=== PATIENT | male | born 2005 | race Two or more races ===

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

== ENCOUNTER 2024-02-06 19:16 | Emergency (ER) | payer SELFPAY ==
[~2024-02-06] VITALS: Ht 177.8 cm; Wt 84.1 kg
[2024-02-06 19:19] VITALS: BP 133/74; PULSE 100; RESP 16; TEMP 98.2; O2SAT 100
[2024-02-06] MEDS ORDERED: DOXY-354 PO (21:10)
[2024-02-06] MEDS: DOXYCYCLINE HYCLATE 100 MG TABLET PO ONE (21:22)
[2024-02-06] MEDS: PERTUSS(ACELL),DIPH,TET/PF 0.5 ML SYRINGE [ADULT] IM. ONE (21:23)
== END 2024-02-06 22:59 | disposition home or self-care (01) ==
LOC: EMS 19:16
DX: S91.352A Open bite, left foot, initial encounter (principal); S91.351A Open bite, right foot, initial encounter; S61.451A Open bite of right hand, initial encounter; Z88.0 Allergy status to penicillin; W54.0XXA Bitten by dog, initial encounter; Y93.89 Activity, other specified; Y92.89 Other specified places as the place of occurrence of the external cause; Y99.8 Other external cause status
CPT/HCPCS: 90471; 90715; 99283

== ENCOUNTER 2024-10-21 16:12 | Emergency (ER) | payer SELFPAY ==
[~2024-10-21] VITALS: Ht 175.3 cm; Wt 100.0 kg
[~2024-10-21 16:12] MED LIST: DOXY-354 PO
[2024-10-21 17:03] LABS: COVID AG,FIA SOURCE NASAL SWAB
[2024-10-21 17:22] LABS: SARS-COV2 (COVID) ANTIGEN,FIA Negative (Negative)
[2024-10-21 17:27] LABS: INFLUENZA TYPE A NEGATIVE FOR TYPE A (NEGATIVE); INFLUENZA TYPE B NEGATIVE FOR TYPE B (NEGATIVE)
[2024-10-21] MEDS ORDERED: ALBU18HF12 IH (18:08)
[2024-10-21] MEDS ORDERED: BENZ-227 PO (18:08)
[2024-10-21 18:09] VITALS: BP 114/74; PULSE 78; RESP 18; TEMP 97.9; O2SAT 100
== END 2024-10-21 18:22 | disposition home or self-care (01) ==
LOC: EMS 16:12
DX: J40 Bronchitis, not specified as acute or chronic (principal); Z20.822 Contact with and (suspected) exposure to COVID-19; Z88.0 Allergy status to penicillin; Z79.899 Other long term (current) drug therapy; Z72.89 Other problems related to lifestyle
CPT/HCPCS: 87804; 99283

== ENCOUNTER 2024-12-22 07:45 | Emergency (ER) | payer MEDICAID ==
[~2024-12-22] VITALS: Ht 167.6 cm; Wt 105.5 kg
[~2024-12-22 07:45] MED LIST changes: +ALBU18HF12 IH; +BENZ-227 PO
[2024-12-22 07:56] VITALS: TEMP 98.4
[2024-12-22] MEDS ORDERED: ACET-66 PO (09:02)
[2024-12-22] MEDS ORDERED: SULF15DR26 OU (09:02)
[2024-12-22] MEDS ORDERED: IBUP-1554 PO (09:24)
[2024-12-22 09:27] VITALS: BP 122/71; PULSE 113; RESP 18; O2SAT 98
== END 2024-12-22 09:31 | disposition home or self-care (01) ==
LOC: EMS 07:46
DX: B30.9 Viral conjunctivitis, unspecified (principal); R00.2 Palpitations; Z88.0 Allergy status to penicillin; Z79.899 Other long term (current) drug therapy; W22.09XA Striking against other stationary object, initial encounter
CPT/HCPCS: 93005; 99283

== ENCOUNTER 2024-12-24 13:34 | Inpatient (IN) | payer MEDICAID ==
[~2024-12-24] VITALS: Ht 167.6 cm; Wt 113.5 kg
[~2024-12-24 13:34] MED LIST changes: +IBUP-1554 PO; +SULF15DR26 OU
[2024-12-24 15:01] LABS: PLATELET COUNT (AUTO) 263 K/uL (150-450); RED BLOOD CELL COUNT(AUTO) 5.22 MIL/uL (4.50-5.90); RED CELL DISTRIBUTION WIDTH 12.5 % (11.5-14.5); WHITE BLOOD COUNT (AUTO) 12.3 K/uL (4.5-11.0)
[2024-12-24 15:19] LABS: CALCIUM, TOTAL 9.4 mg/dL (8.8-10.5); CREATININE 1.00 mg/dL (0.60-1.30); GLOMERULAR FILTR. RATE CALC > 60 mL/min (>60); GLUCOSE,RANDOM 126 mg/dL (70-110); SODIUM SERUM 134 mmol/L (136-145); UREA NITROGEN, BLOOD 11 mg/dL (7-18)
[2024-12-24 15:20] LABS: PLATELET MORPHOLOGY COMMENT LARGE PLTS PRESENT; RBC MORPHOLOGY COMMENT NORMAL RBC MORPH
[2024-12-24 15:24] LABS: LACTIC ACID 1.4 mmol/L (0.4-2.0)
[2024-12-24 15:33] LABS: ASPARTATE AMINOTRANSFERASE 51 U/L (15-37); CREATINE KINASE, TOTAL ONLY 1638 U/L (39-308); TOTAL PROTEIN, SERUM 8.2 g/dL (6.4-8.2)
[2024-12-24 16:06] LABS: APPEARANCE,URINE CLEAR (CLEAR); GLUCOSE, URINE (UA) NEGATIVE (NEGATIVE); LEUKOCYTE ESTERASE ,URINE NEGATIVE (NEGATIVE); NITRATE,URINE NEGATIVE (NEGATIVE); OCCULT BLOOD,URINE NEGATIVE (NEGATIVE); SPECIFIC GRAVITIY, URINE 1.009 (1.003-1.030)
[2024-12-24 16:10] LABS: COVID AG,FIA SOURCE NASAL SWAB
[2024-12-24 16:24] LABS: TROPONIN I-HIGH SENSITIVITY 7 ng/L (<76)
[2024-12-24] MEDS: SODIUM CHLORIDE 0.9% 2,000 ML IV ONE (16:24)
[2024-12-24 16:46] LABS: SARS-COV2 (COVID) ANTIGEN,FIA Negative (Negative)
[2024-12-24 16:47] LABS: INFLUENZA TYPE A NEGATIVE FOR TYPE A (NEGATIVE); INFLUENZA TYPE B NEGATIVE FOR TYPE B (NEGATIVE)
[2024-12-24 20:20] VITALS: BP 140/88; PULSE 114; RESP 19; TEMP 101.1; O2SAT 100
[2024-12-24] MEDS ORDERED: ZOLPIDEM TARTRATE 5 MG TABLET PO PRN (20:30)
[2024-12-24] MEDS ORDERED: MAGNESIUM HYDROXIDE SUSPENSION 30 ML UDCUP PO PRN (20:30)
[2024-12-24] MEDS ORDERED: ONDANSETRON HCL 4 MG/2 ML VIAL IVP PRN (20:30)
[2024-12-24] MEDS ORDERED: MORPHINE SULFATE 2 MG/ML SYRINGE IVP PRN (20:30)
[2024-12-24] MEDS ORDERED: BISACODYL 10 MG RECTAL RECTAL SUPPOSITORY PR PRN (20:30)
[2024-12-24] MEDS: DOCUSATE SODIUM 100 MG CAPSULE PO SCH (21:00)
[2024-12-24] MEDS: IBUPROFEN 400 MG TABLET PO PRN (21:08)
[2024-12-24] MEDS: SODIUM CHLORIDE 0.9% 1,000 ML IV SCH (21:12)
[2024-12-24 22:27] LABS: APPEARANCE,URINE CLEAR (CLEAR); GLUCOSE, URINE (UA) NEGATIVE (NEGATIVE); LEUKOCYTE ESTERASE ,URINE NEGATIVE (NEGATIVE); NITRATE,URINE NEGATIVE (NEGATIVE); OCCULT BLOOD,URINE NEGATIVE (NEGATIVE); PH,URINE DRUG SCREEN 7.5 (5.0-8.0); SPECIFIC GRAVITIY, URINE 1.010 (1.003-1.030)
[2024-12-24 22:39] LABS: SQUAMOUS EPITHELIAL CELL,UR Rare /LPF (None Seen)
[2024-12-24 22:42] LABS: ALCOHOL, URINE DRUG SCREEN NEGATIVE (NEGATIVE); AMPHET/METH SCREEN,URINE NEGATIVE (NEGATIVE); BARBITURATE SCREEN, URINE NEGATIVE (NEGATIVE); CANNABINOID SCREEN,URINE NEGATIVE (NEGATIVE); COCAINE SCREEN,URINE NEGATIVE (NEGATIVE); METHADONE SCREEN, URINE NEGATIVE (NEGATIVE)
[2024-12-24 23:57] VITALS: BP 108/64; PULSE 83; RESP 18; TEMP 98.6; O2SAT 96
[2024-12-25] VITALS (10 sets, daily range): BP systolic 115–131; BP diastolic 57–78; PULSE 83–99; RESP 17–18; TEMP 98.1–102.2; O2SAT 96–100
[2024-12-25] MEDS: HEPARIN SODIUM,PORCINE 5,000 UNITS/ML VIAL SQ SCH
[2024-12-25 06:46] LABS: PLATELET COUNT (AUTO) 215 K/uL (150-450); RED BLOOD CELL COUNT(AUTO) 4.50 MIL/uL (4.50-5.90); RED CELL DISTRIBUTION WIDTH 12.4 % (11.5-14.5); WHITE BLOOD COUNT (AUTO) 10.0 K/uL (4.5-11.0)
[2024-12-25 06:54] LABS: CALCIUM, TOTAL 8.0 mg/dL (8.8-10.5); CREATININE 0.89 mg/dL (0.60-1.30); GLOMERULAR FILTR. RATE CALC > 60 mL/min (>60); GLUCOSE,RANDOM 96 mg/dL (70-110); SODIUM SERUM 136 mmol/L (136-145); UREA NITROGEN, BLOOD 8 mg/dL (7-18)
[2024-12-25] MEDS: PANTOPRAZOLE SODIUM 40 MG DR TABLET PO SCH (09:41)
[2024-12-25] MEDS ORDERED: SODIUM CHLORIDE 0.9% 100 ML ONE (15:42)
[2024-12-25] MEDS ORDERED: IOHEXOL 350 MG/ML 100 ML VIAL ONE (15:42)
[2024-12-25] MEDS ORDERED: 0.9% SODIUM CHLORIDE 10 ML SYRINGE IVP ONE (15:42)
[2024-12-25] MEDS: ALBUTEROL SULFATE 2.5 MG/0.5 ML NEB SOLUTION NEB PRN (19:11)
[2024-12-25] MEDS: BENZOCAINE/MENTHOL/ZINC CL 20% 11.9 GM GEL TP PRN (22:55)
[2024-12-26 03:19] VITALS: BP 120/79; PULSE 77; RESP 18; TEMP 97.9; O2SAT 99
[2024-12-26 07:56] VITALS: BP 110/84; PULSE 83; RESP 20; TEMP 97.9; O2SAT 99
[2024-12-26 08:15] LABS: PLATELET COUNT (AUTO) 206 K/uL (150-450); RED BLOOD CELL COUNT(AUTO) 4.76 MIL/uL (4.50-5.90); RED CELL DISTRIBUTION WIDTH 12.2 % (11.5-14.5); WHITE BLOOD COUNT (AUTO) 9.3 K/uL (4.5-11.0)
[2024-12-26 08:23] LABS: CALCIUM, TOTAL 8.5 mg/dL (8.8-10.5); CREATININE 0.77 mg/dL (0.60-1.30); GLOMERULAR FILTR. RATE CALC > 60 mL/min (>60); GLUCOSE,RANDOM 104 mg/dL (70-110); SODIUM SERUM 140 mmol/L (136-145); UREA NITROGEN, BLOOD 12 mg/dL (7-18)
[2024-12-26 16:15] LABS: ASPARTATE AMINOTRANSFERASE 48.0 U/L (15-37); TOTAL PROTEIN, SERUM 6.8 g/dL (6.4-8.2)
[2024-12-26 16:23] VITALS: BP 119/80; PULSE 79; RESP 18; TEMP 99.5; O2SAT 99
[2024-12-26 19:48] VITALS: BP 112/60; PULSE 74; RESP 19; TEMP 98.2; O2SAT 100
[2024-12-26 21:37] LABS: INFLUENZA A-RTPCR,COMBO NEGATIVE (NEGATIVE); INFLUENZA B-RTPCR,COMBO NEGATIVE (NEGATIVE); RESPIRATORY SYNCYTIAL VRS-PCR NEGATIVE (NEGATIVE); SARS COVID19 RTPCR, COMBO NEGATIVE (NEGATIVE)
[2024-12-27 04:43] VITALS: BP 117/80; PULSE 69; RESP 19; TEMP 97.6; O2SAT 100
[2024-12-27 07:20] LABS: PLATELET COUNT (AUTO) 231 K/uL (150-450); RED BLOOD CELL COUNT(AUTO) 4.80 MIL/uL (4.50-5.90); RED CELL DISTRIBUTION WIDTH 12.5 % (11.5-14.5); WHITE BLOOD COUNT (AUTO) 6.7 K/uL (4.5-11.0)
[2024-12-27 07:25] LABS: CALCIUM, TOTAL 9.0 mg/dL (8.8-10.5); CREATININE 0.86 mg/dL (0.60-1.30); GLOMERULAR FILTR. RATE CALC > 60 mL/min (>60); GLUCOSE,RANDOM 90 mg/dL (70-110); SODIUM SERUM 138 mmol/L (136-145); UREA NITROGEN, BLOOD 12 mg/dL (7-18)
[2024-12-27 08:28] VITALS: BP 112/72; PULSE 69; RESP 18; TEMP 98.1; O2SAT 100
[2024-12-27 15:30] VITALS: BP 121/68; PULSE 77; RESP 20; TEMP 98.1; O2SAT 100
[2024-12-27 20:00] VITALS: BP 121/68; PULSE 68; RESP 19; TEMP 98.4; O2SAT 98
[2024-12-28 04:59] VITALS: BP 101/54; PULSE 65; RESP 20; TEMP 98.2; O2SAT 100
[2024-12-28 07:10] VITALS: BP 113/68; PULSE 61; RESP 20; TEMP 98.1; O2SAT 100
[2024-12-31 11:07] LABS: WEST NILE VIRUS IGG Negative (Negative); WEST NILE VIRUS IGM Negative (Negative)
== END 2024-12-28 13:35 | disposition home or self-care (01) | DRG 351 ==
LOC: EMS 13:40 → EDH 16:42 → 5S 20:14 → 6S 12-25 11:25 → 4E 12-26 06:40
PROVIDERS: ADMIT Internal Medicine; ATTEND Internal Medicine
DX: M62.82 Rhabdomyolysis (principal); B34.9 Viral infection, unspecified; R73.9 Hyperglycemia, unspecified; R50.9 Fever, unspecified; Z20.822 Contact with and (suspected) exposure to COVID-19; Z88.0 Allergy status to penicillin; Z88.6 Allergy status to analgesic agent
CPT/HCPCS: 71045; 71260; 72193; 74160; 80048; 80076; 80307; 81001; 81003; 82550; 83605; 83880; 84145; 84484; 85025; 86592; 86788; 86789; 87040; 87389; 87491; 87591; 87637; 87804; 93005; 94640; 99285; G0378; G0480; J1644; J7030; J7050; 36415-L1; 36415-TC; J7613

== ENCOUNTER 2025-02-02 08:00 | Emergency (ER) | payer SELFPAY ==
[~2025-02-02] VITALS: Ht 167.6 cm; Wt 108.0 kg
[~2025-02-02 08:00] MED LIST changes: -DOXY-354 PO; -IBUP-1554 PO
[2025-02-02 08:15] VITALS: BP 115/63; PULSE 70; RESP 18; TEMP 97.3; O2SAT 98
== END 2025-02-02 08:43 | disposition still patient (30) ==
LOC: EMS 08:01
DX: R69 Illness, unspecified (principal); Z53.21 Procedure and treatment not carried out due to patient leaving prior to being seen by health care provider

== ENCOUNTER 2025-04-11 21:36 | Emergency (ER) | payer SELFPAY ==
[~2025-04-11] VITALS: Ht 175.3 cm; Wt 105.5 kg
[2025-04-11 21:40] VITALS: BP 118/71; PULSE 97; RESP 18; TEMP 98.1; O2SAT 100
[2025-04-11 22:01] LABS: PLATELET COUNT (AUTO) 283 K/uL (150-450); RED BLOOD CELL COUNT(AUTO) 4.93 MIL/uL (4.50-5.90); RED CELL DISTRIBUTION WIDTH 13.5 % (11.5-14.5); WHITE BLOOD COUNT (AUTO) 9.7 K/uL (4.5-11.0)
[2025-04-11 22:24] LABS: CALCIUM, TOTAL 8.4 mg/dL (8.8-10.5); CREATININE 0.76 mg/dL (0.60-1.30); GLOMERULAR FILTR. RATE CALC > 60 mL/min (>60); GLUCOSE,RANDOM 102 mg/dL (70-110); SODIUM SERUM 141 mmol/L (136-145); UREA NITROGEN, BLOOD 17 mg/dL (7-18)
== END 2025-04-12 00:18 | disposition left against medical advice (07) ==
LOC: EMS 21:36
DX: R10.84 Generalized abdominal pain (principal); Z53.21 Procedure and treatment not carried out due to patient leaving prior to being seen by health care provider
CPT/HCPCS: 80048; 83690; 85025; 99281